=== PATIENT | female | born 1940 | race Caucasian/White ===

== ENCOUNTER 2020-04-18 18:03 | Inpatient (IN) | payer MEDICARE, BC ==
[~2020-04-18] VITALS: Ht 152.4 cm; Wt 50.8 kg
--- NOTE | ~2020-04-18 | HEMODYNAMI ---
PATIENT:MARC TRIPP MEDICAL RECORD: [id number] : 42 [id number] ADMISSION DATE: 04/19/20 Generatedon:04/21/202010:57 Patient name: MARC TRIPP Patient #: [id number] : 1940 Date of study: 04/21/2020 Page: Of Hemodynamic Procedure Report Patient Data Patient Demographics Procedure consent was obtained First Name: MARC Gender: Female Last Name: JOSEE : 1940 [facility] Initial: LORELEI Age: 80 year(s) Patient #: [id number] Race: SSN: [id number] Additional ID: [id number] Contact details Address: [address] [place] [address] State: [place] City: [place] Zip code: [address] Past Medical History Allergies: No known allergies Admission Admission Data Admission Date: 04/19/2020 Admission Time: 23:11 Arrival Date: 04/19/2020 Arrival Time: 23:11 Admit Source: Emergency Insurance Payor: Medicare department [facility] #: [id number] [facility] Height (in.): 59.84 BSA: 1.45 (m2) Height (cm.): 152 BMI: 21.64 (kg/m2) Weight (lbs.): 110.23 Weight (kg.): 50 Lab Results Lab Result Date: 04/21/2020 Lab Result Time: 0:00 Biochemistry Name Units Result Min Max BUN mg/dl 11 --(-*--)-- 7 18 Creatinine mg/dl 0.8 --(-*--)-- 0.6 1.3 eGFR ml/min 73.72819 *-(----)-- 90 120 NONAFRICAN CBC Name Units Result Min Max Hemoglobin g/dl 13.1 -*(----)-- 13.5 17.5 Procedure Procedure Types Cath Procedure Diagnostic Procedure LHC LHC w/Coronaries Sedation Charges Moderate Sedation up to 15 minutes PCI Procedure Coronary Stent Coronary Stent Initial Hemochron ACT Test Procedure Description Procedure Date Procedure Date: 04/21/2020 Procedure Start Time: 10:34 Procedure End Time: 10:51 Procedure Staff Name Function Mark Carmona MD Performing Physician Joelle Wu RT Monitor Dina Rush RT Scrub Marycarmen Marinelli RN Nurse Procedure Data Cath Procedure Fluoroscopy Diagnostic fluoroscopy Total fluoroscopy Time: 3.3 time: 3.3 min min Diagnostic fluoroscopy Total fluoroscopy dose: 381 dose: 381 mGy mGy Contrast Material Contrast Material Type Amount (ml) Isovue 370 73 Entry Location Entry Primary Successful Side Size Upsize Upsize Entry Closure Keller ccessful Closure Location (Fr) 1 (Fr) 2 (Fr) Remarks Device Remarks Radial Right 6 Fr Mechanical artery Short Compression Estimated blood loss: 10 ml Diagnostic catheters Device Type Used For End Catheter Placement DIAGNOSTIC [place] 110cm 5 Procedure Fr catheter ([id number]) Procedure Complications No complications Procedure Medications Medication Administration Route Dosage Oxygen etCO2 Nasal cannula 2 l/min Lidocaine 2% added to field 20 Heparin Flush Bag added to field 2 bags (1000units/500ml NS) 0.9% NaCl I.V. 100 ml/hr Versed I.V. 1 mg Fentanyl I.V. 25 mcg Vasotec 2.5 mg Heparin Bolus I.V. 4000 units Integrilin (Bolus I.V. 4.5 ml 2mg/ml) Radial Cocktail I.A. 1 syringe (Verapamil 2mg/Nitro 400mcg/Heparin 1500units) Plavix P.O. 600 mg Hemodynamics Rest BSA: 1.45 (m2) HGB: 13.1 (g/dl) O2 Consumption: Estimated: 122.68 (ml/min) O2 Co nsumption indexed: Estimated:84.61 (ml/min/m) Heart Rate: 55 (bpm) Pressure Samples Time Site Value (mmHg) Purpose Heart Use Rate(bpm) 10:36 LV 168/11,5 Snapshot 56 10:36 AO 141/78(105) Pullback 62 10:36 LV 144/8,10 Pullback 62 Gradients Valve Time Site 1 Site 2 Mean SEP/DFP Peak To Heart Use (mmHg) (sec/min) Peak Rate (mmHg) (bpm) Aortic 10:36 LV AO 3 62 144/8,10 141/78(105) Calculations Valve P-P Mean Valve Index Valve Source Name Gradient Area Flow (cm2) Aortic 3 3 Snapshots Pre Cath Intra NCS Post Cath Vital Signs Time Heart Resp SPO2 etCO2 NIBP (mmHg) Rhythm Pain Sedation Rate (ipm) (%) (mmHg) Status Level (bpm) 10:17:17 59 18 96 0 224/89(169) NSR 0 (11) 10(A) , No pain 10:21:56 57 15 96 28.6 207/85(169) NSR 0 (11) 10(A) , No pain 10:26:28 54 14 97 0.7 199/84(157) NSR 0 (11) 10(A) , No pain 10:30:59 54 13 97 3.7 215/86(166) NSR 0 (11) 10(A) , No pain 10:35:35 62 15 98 17.3 222/106(163) NSR 0 (11) 9(A) , No pain 10:40:05 61 12 96 35.4 177/78(123) NSR 0 (11) 9(A) , No pain 10:44:26 60 13 97 38.4 195/92(160) NSR 0 (11) 9(A) , No pain 10:48:52 60 14 98 1.5 194/87(149) NSR 0 (11) 10(A) , No pain Medications Time Medication Route Dose Verified Delivered Reason Not es Effectiveness by by 10:15:08 Oxygen etCO2 2 l/min Mark Conroy used for Nasal St Jasiel Marinelli RN procedure cannula 10:15:15 Lidocaine 2% added 20ml Mark Flores for local to vial [facility] anesthetic field MD SOUZA 10:15:22 Heparin Flush added 2 bags Mark Flores used for Bag to [facility] procedure (1000units/500ml field MD SOUZA NS) 10:17:18 0.9% NaCl I.V. 100 Mark Conroy Per physician ml/hr St Jasiel Marinelli RN, MD 10:34:48 Versed I.V. 1 mg Mark Conroy for sedation St Jasiel Marinelli RN, MD 10:34:56 Fentanyl I.V. 25 mcg Mark Conroy for sedation St Jasiel Marinelli RN, MD 10:35:09 Radial Cocktail I.A. 1 Mark Flores for (Verapamil syringe St Jasiel Carmona vasodilation 2mg/Nitro MD SOUZA 400mcg/Heparin 1500units) 10:39:06 Vasotec IV 2.5 mg Mark Pollock RN hypertension 10:42:17 Heparin Bolus I.V. 4000 Mark hallman pravin ified units St Jasiel Marinelli RN anticoagulation with dr MD kline 10:45:01 Integrilin I.V. 4.5 ml Mark hallman was ricky (Bolus 2mg/ml) St Jasiel Marinelli RN antiplatelet 5.5 ml therapy of vial 10:49:45 Plavix P.O. 600 mg Mark Pollock RN antiplatelet therapy Procedure Log Time Note 9:47:52 Informed consent obtained and on chart 9:48:50 Arrival Date: 04/19/2020 11:11:00 PM 9:49:11 Admit Source: Emergency department 9:49:13 Insurance Payor : Medicare 9:49:20 Patient Height : 59.84 inches 9:49:27 Patient Weight : 110.23 lbs 9:50:12 Lab Result : Creatinine 0.8 mg/dl 9:50:12 Lab Result : BUN 11 mg/dl 9:50:12 Lab Result : eGFR NONAFRICAN 73.93242 ml/min 9:50:12 Lab Result : Hemoglobin 13.1 g/dl 9:50:59 Procedure Status Urgent Heart Cath (IP). 9:51:01 Marycarmen Marinelli RN sent for patient. Start room use. 9:51:02 Time tracking: Regular hours (M-F 7:00 - 5:00) 9:51:05 Plan of Care:Hemodynamics will remain stable., Cardiac rhythm will remain stable., Comfort level will be maintained., Respiratory function will remain adequate., Patient/ family verbilizes understanding of procedure., Procedure tolerated without complication., Recovers from procedure without complications.. 9:59:36 H&P Date Dictated: 04/18/2020 Within 30 days and on chart.. 9:59:36 Pre-procedure instructions explained to patient. 9:59:36 Pre-op teaching completed and patient verbalized understanding. 9:59:38 Family unavailable. 9:59:40 Patient NPO since Midnight. 9:59:46 Patient allergic to No known allergies 9:59:53 Patient pain scale 0/10 ?. 9:59:56 Lab results completed and on chart. 9:59:59 Stress Test: no; N/A ? 10:00:00 Alarms reviewed by RAzalea N. 10:00:01 Sharps counted by scrub and verified by RAzaleaN. 10:07:48 Patient received from Med II to CCL 2 Alert and oriented. Tansferred to table in Supine position. 10:07:53 Warm blankets applied, and hema hugger turned on for patient comfort. 10:07:54 Correct patient and procedure confirmed by team. 10:07:54 ECG and BP/O2 sat monitors applied to patient. 10:07:59 Is the patient allergic to Iodine/contrast media? No. 10:08:00 Was the patient premedicated? N/A 10:08:02 Is patient on blood thinner?No 10:08:10 Patient diabetic? No. 10:08:12 If diabetic: On Metformin? N/A 10:08:14 Patient not . Patient is over age 55. 10:08:15 ----Pre-sedation anethsthesia assessment.---- 10:14:58 Vital chart was started 10:15:08 Oxygen 2 l/min etCO2 Nasal cannula was administered by Marycarmen Marinelli RN; used for procedure; Verbal order read back and verified. 10:15:15 Lidocaine 2% 20ml vial added to field was administered by Mark Carmona MD; for local anesthetic; Verbal order read back and verified. 10:15:22 Heparin Flush Bag (1000units/500ml NS) 2 bags added to field was administered by Mark Carmona MD; used for procedure; Verbal order read back and verified. 10:15:35 Dentures? Yes IN 10:15:40 ACC The patient was administered the following blood thiners within the last 24 hours: ACCLovenox 10:15:45 Previous problem with sedation/anesthesia? No ? 10:15:47 Snore? No 10:15:48 Sleep apnea? No 10:15:50 Deviated septum? No 10:15:51 Opens mouth fully? Yes 10:15:53 Sticks out tongue? Yes 10:15:55 Airway obstruction? No ? 10:15:59 Pre procedure: right dorsailis pedis pulse 1+ Palpable, but thready & weak; easily obliterated 10:16:01 Modified Vince's test Ulnar < 7 seconds 10:16:03 Patient pain scale 0/10 ?. 10:16:16 IV patent on arrival in left forearm with 0.9% NaCl at [facility]. 10:16:20 Right Radial & Right Groin area was prepped with chlora-prep and draped in sterile fashion 10:16:59 Use device set Radial Dx or PCI 10:17:00 ACIST Syringe (34186) opened to sterile field. 10:17:01 Bag Decanter (2002S) opened to sterile field. 10:17:02 ACIST Hand Control (35438) opened to sterile field. 10:17:02 ACIST Manifold (05052) opened to sterile field. 10:17:02 Tegaderm 4 x 4 (1626W) opened to sterile field. 10:17:06 Medline Cath Pack ([id number]) opened to sterile field. 10:17:07 MBrace Wrist Support ([id number]) opened to sterile field. 10:17:08 EMERALD Guide Wire (668-370) opened to sterile field. 10:17:09 SHEATH 6FR RAIN (3252888) opened to sterile field. 10:17:18 0.9% NaCl 100 ml/hr I.V. was administered by Marycarmen Marinelli RN; Per physician; Verbal order read back and verified. 10:24:26 Diagnostic Cath Status : Urgent 10:25:53 Baseline sample Acquired. 10:25:55 Full Disclosure recording started 10:25:58 Rhythm: sinus bradycardia 10:33:42 --------ALL STOP TIME OUT------ 10:33:42 Final Timeout: patient, procedure, and site verified with staff and physician. All members of the team are in agreement. 10:33:44 Right Radial & Right Groin site verified by team. 10:33:47 Fire Safety Assessment: A--An alcohol-based skin anteseptic being used preoperatively., C--Open oxygen or nitrous oxide is being used., D--An ESU, laser, or fiber-optic light is being used. 10:33:50 Physical assessment completed. ASA score P 2 - A patient with mild systemic disease as per Mark Carmona MD. 10:33:55 2) 60-89 Mildly reduced kidney function, and other findings (as for stage 1) point to kidney disease. 10:33:57 Maximum allowable contrast dose (3.7 X eGFR X 0.75)219 ml. 10:34:00 Sedation plan: IV Moderate Sedation Medication:Versed, Fentanyl 10:34:04 Procedure started. 10:34:09 Local anesthetic to right radial artery with Lidocaine 2% by Mark Carmona MD.INITIAL ACCESS ONLY 10:34:48 Versed 1 mg I.V. was administered by Marycarmen Marinelli RN; for sedation; Verbal order read back and verified. 10:34:48 A 6 Fr Short sheath was inserted into the Right Radial artery 10:34:56 Fentanyl 25 mcg I.V. was administered by Marycarmen Marinelli RN; for sedation; Verbal order read back and verified. 10:35:09 Radial Cocktail (Verapamil 2mg/Nitro 400mcg/Heparin 1500units) 1 syringe I.A. was administered by Mark Carmona MD; for vasodilation; Verbal order read back and verified. 10:35:34 A DIAGNOSTIC [place] 110cm 5 Fr catheter ([id number]) was advanced over the wire and used for Procedure. 10:36:01 LV gram done using BUCK 10:36:20 LV hemodynamics recorded. 10:36:22 Injector settings: Ml/sec: 5, Volume: 15, 10:36:42 EF : 20 % 10:36:49 LCA angiography performed. 10:36:54 Injector settings: Ml/sec: 3, Volume: 6, 10:38:06 RCA angiography performed. 10:38:09 Injector settings: Ml/sec: 3, Volume: 6, 10:39:06 Vasotec 2.5 mg IV was administered by Marycarmen Marinelli RN; for hypertension; Verbal order read back and verified. 10:39:48 Use device set [place] PCI 10:40:18 Catheter exchanged over wire. 10:40:40 GUIDE 6FR XBLAD 3.5 catheter ([id number]) opened to sterile field. 10:40:53 WHISPER 300cm guide wire ([id number]) opened to sterile field. 10:41:06 INFLATOR Merit BasixCompak (ZN4081) opened to sterile field. 10:41:12 Proceeding to intervention. 10:41:25 6 Fr XBLAD 3.5 guide catheter was inserted over the wire 10:41:56 WHISPER 300 wire advanced. 10:42:06 Pre PCI Site: [place] LAD has 80% stenosis. 10:42:17 Heparin Bolus 4000 units I.V. was administered by Marycarmen Marinelli RN; for anticoagulation; verified with dr kline Verbal order read back and verified. 10:43:03 Wire advanced across lesion. 10:45:01 Integrilin (Bolus 2mg/ml) 4.5 ml I.V. was administered by Marycarmen Marinelli RN; for antiplatelet therapy; wasted 5.5 ml of vial Verbal order read back and verified. 10:45:47 Place stent Inflation Number: 1 A INTEGRITY OTW 3.5 X 12 stent ([id number]) was prepped and advanced across the Prox LAD 80. The stent was deployed at 14 PAUL for 0:00 (min:sec) . 10:46:13 ZEPHYR REGULAR TR BAND (156816) opened to sterile field. 10:46:20 Stent catheter was removed intact over wire. 10:46:21 Wire removed. 10:46:22 Guide catheter removed. 10:46:32 Sheath removed intact; hemostasis achieved with Mechanical Compression to the Right Radial artery. 10:46:34 Procedure ended.(Physican Out) 10:47:09 Fluoroscopy time 03.30 minutes. 10:47:18 Fluoroscopy dose: 381 mGy 10:47:18 Flurop Dose total: 381 10:47:37 Dose Area Product 35386 mGy/cm. 10:47:41 Contrast amount:Isovue 370 73ml. 10:47:44 Maximum allowable dose exceeded? No. 10:47:45 Sharps counted by scrub and verified by R.N. 10:47:48 Prole band inflated with 13cc of air. 10:48:04 Post Procedure Pulses reassessed and unchanged 10:48:13 Post procedure: right dorsailis pedis pulse 2+ Normal; easily identifiable; not easily obliterated. 10:48:17 Post-procedure physical assessment completed. ASA score P 2 - A patient with mild systemic disease as per Mark Carmona MD. 10:48:20 Post procedure rhythm: unchanged. 10:48:23 Estimated blood loss: 10 ml 10:48:24 Post procedure instruction explained to patient.Patient verbalizes understanding. 10:48:25 Patient needs reinforcement of post procedure teaching. 10:48:52 Procedure type changed to Cath procedure, Diagnostic procedure, LHC, [facility] w/Coronaries, Sedation Charges, Moderate Sedation up to 15 minutes, PCI procedure, Coronary Stent, Coronary Stent Initial, Hemochron ACT Test 10:49:16 Procedure and supply charges have been captured, reviewed, submitted and are correct. 10:49:20 Procedure Complication : No complications 10:49:29 [facility] Findings: MVD- PCI performed (see procedure note) 10:49:39 Operative report dictated upon procedure completion. 10:49:40 See physician's report for complete and final results. 10:49:41 Report given to [facility]. 10:49:45 Plavix 600 mg P.O. was administered by Marycarmen Marinelli RN; for antiplatelet therapy; Verbal order read back and verified. 10:49:46 Patient transfered to [facility] with Bed. 10:51:28 Vital chart was stopped 10:51:30 Procedure ended. 10:51:30 Full Disclosure recording stopped 10:52:01 ACC-PCI Only Patient was given prescriptions, or instructed by Mark Carmona MD to start/continue the following medications upon discharge: Plavix 10:52:02 End room use (Document Last) 10:52:21 End room use (Document Last) 10:54:01 End room use (Document Last) 10:56:32 ACT drawn and resulted at out of range high seconds. (normal therapeutic range 180-240 seconds). Intervention Summary Intervention Notes Time ActionType Lesion and Equipment Action# Pressure Duration Attributes Used 10:45:47 Place stent Prox LAD INTEGRITY 1 14 00:00 OTW 3.5 X 12 stent ([id number]) Device Usage Item Name Manufacture Quantity Catalog Hospital Part Current Minima l Lot# / Number Charge Number Stock Stock Serial# Code ACIST Acist 1 35847 760834 370618 947876 20 Syringe Medical (79640) Systems Inc Bag Microtek 1 629290 02516 981799 5 Decanter Medical Inc. () ACIST Hand Acist 1 55884 882360 648074 971182 5 Control Medical (13070) Systems Inc ACIST Acist 1 25907 086984 961109 652022 5 Manifold Medical (68652) Systems Inc Tegaderm 4 3M 1 1626W 067676 972375 173850 5 x 4 (1626W) Medline Medline 1 [id number] 273284 81779 773066 5 Cath Pack ([id number]) MBrace Advanced 1 140-0250-00 595644 56452 668067 5 Wrist Vascular Support Dynamics ([id number]) EMERALD Cardinal 1 502-455 957219 040505 993997 5 Guide Wire Health (502455) SHEATH 6FR Cardinal 1 5957458 029943 1719393 497338 5 RAIN Health (0953308) DIAGNOSTIC Terumo 1 40-5013 773699 155345 530396 5 [place] 110cm 5 Fr catheter (132173) GUIDE 6FR Cardinal 1 18422146 867971 250252 936554 10 XBLAD 3.5 Health catheter (52390310) WHISPER Martin 1 [id number] 060775 733034 326961 5 300cm guide Vascular wire (2526257RT) INFLATOR Merit 1 YQ7918 296574 015732 954771 15 [facility] Medical BasixCompak (CA8797) INTEGRITY Medtronic 1 [id number] 929142 088648 360713 6 [id number] OTW 3.5 X 12 stent ([id number]) ZEPHYR Cardinal 1 788409 029222 5863331 870454 5 REGULAR TR Health BAND (318060) Signature Audit [place] Stage Time Signature Unsigned Intra-Procedure 04/21/2020 Joelle Wu 10:52:21 AM RT(R) Intra-Procedure 04/21/2020 Marycarmen Marinelli RN 10:54:01 AM Intra-Procedure 04/21/2020 Mark Herrera 10:57:00 AM Jasiel SOUZA Signatures Performing Physician : Signature : Mark Carmona MD Date : Time : Monitor : Joelle Wu Signature : RT Date : Time : Nurse : Buffie Marinelli RN Signature : Date : Time : [place] [address] [place] [address]
--- NOTE | ~2020-04-18 | EC ---
PATIENT:MARC TRIPP DATE OF SERVICE: 04/19/20 SEX: F MEDICAL RECORD: [id number] DATE OF : 42 LOCATION:D.M2 D.211 AGE OF PATIENT: 80 ADMISSION DATE: 04/19/20 REFERRING PHYSICIAN: INTERPRETING PHYSICIAN: ANGELES BURNS MD ECHOCARDIOGRAM REPORT ECHO CHARGES 4 ECHO COMPLETE Date: 04/19/20 CLINICAL DIAGNOSIS: LVH ECHOCARDIOGRAPHIC MEASUREMENTS (adult normal given) AC root (d.<3.7cm) 2.5 cm LV Septum d (<1.2 cm> 1.2 cm Valve Excursion 1.2 cm LV Septum (systole) 1.5 cm Left Atria (s.<4.0cm> 3.4 cm LVPW d(<1.2cm) 0.8 cm RV (d.<2.3cm) 1.9 cm LVPW (sytole) 0.9 cm LV diastole(<5.6CM) 5.6 cm MV E-F(>70mm/sec) cm LV systole 4.7 cm LVOT Diameter 1.7 cm MV exc.(>10mm) cm Est.ejection fraction (50-75%) % DOPPLER: LVIT cm/sec A 118 cm/sec E 68 cm/sec LA cm/sec RVSP 16.5 mmHg LVOT 96 cm/sec AOP1/2T m/s Asc. Ao 133 cm/sec RVOT 97 cm/sec RA cm/sec PA 87 cm/sec AV Gradient Peak 7.0 mmHg AV Mean 3.0 mmHg AV Area 1.2 cm MV Gradient Peak 9.0 mmHg MV Mean 2.9 mmHg MV Area cm COMMENTS: Store Mgr: Jason HALLMAN Physician'S Assistant: 4 Dr. Burns TAPE# PaCS Pericardial Effusion N DATE OF SERVICE: PROCEDURE: Transthoracic echocardiogram. FINDINGS: 1. The left ventricle shows moderate concentric left ventricular hypertrophy with inflow characteristics consistent with diastolic dysfunction. The patient's overall ejection fraction is 45% to 50%. There is inferior lateral hypokinesis. 2. Left atrium is normal size, shape, structure, and function. ECHOCARDIOGRAM REPORT [id number] MARC TRIPP 3. The aortic valve is normal. 4. The mitral valve is showing mitral annular calcification, but otherwise normal. 5. Tricuspid valve has normal tricuspid function and normal right ventricular systolic pressures. 6. Right ventricle is normal. 7. Right atrium is normal. 8. Pulmonic valve is normal. 9. There is no effusion. IMPRESSION: The patient has mild regional wall motion abnormalities in the inferolateral area, otherwise normal echocardiogram. TRANSINT:[id number] Voice Confirmation ID: [id number] DOCUMENT ID: [id number] ANGELES BURNS MD CC: [id number] DICTATION DATE: 04/20/20 1100 LIVESTOCK LABORER: 04/20/20 1532 ADM IN [place] [id number] [place] [address]
--- NOTE | 2020-04-18 18:20 | NUR ---
ASPIRIN [address] [facility] TODAY BEFORE TRANSFER
[2020-04-18 19:01] LABS: BASOPHILS 0.6 % (0-2); EOSINOPHILS 1.2 % (0-7); HEMATOCRIT 43.3 % (36.0-48.0); HEMOGLOBIN 13.9 g/dL (12-16); IMMATURE GRANULOCYTES 0.2 % (0-5); MCH 30.2 pg (26.0-34.0); MCHC 32.1 g/dL (31.0-37.0); MCV 93.9 fL (80.0-100.0); MEAN PLATELET VOLUME 10.9 fL (7.4-10.4); MONOCYTES 9.2 % (2-11); NEUTROPHILS 67.8 % (40-80); PLATELET COUNT 187 10x3/uL (130-400); RBC 4.61 10x6/uL (4.00-5.40); RDW 14.2 % (11.5-14.5); WBC 4.9 10x3/uL (4.8-10.8)
[2020-04-18 19:03] VITALS: BP 162/73
[2020-04-18 19:11] LABS: INR 1.12 (0.85-1.17); PROTIME 14.3 SECONDS (11.6-15.0)
[2020-04-18 19:12] LABS: APTT 49.5 SECONDS (22.8-39.4); CALC OSMOLALITY 276 mosm/kg (275-300); CALCIUM 8.6 mg/dL (8.5-10.1); CARBON DIOXIDE 27.4 mmol/L (21.0-32.0); CHLORIDE - SERUM 106 mmol/L (98-107); CREATININE - SERUM 0.7 mg/dL (0.6-1.3); GLUCOSE 91 mg/dL (74-106); POTASSIUM - SERUM 3.3 mmol/L (3.5-5.1); SODIUM 139 mmol/L (136-145); UREA NITROGEN 9 mg/dL (7-18); eGFR NON AFRICAN AMERICAN 85 mL/min (90-120)
--- NOTE | 2020-04-18 19:14 | NUR ---
REPORT GIVEN TO LOC ESCAMILLA
--- NOTE | 2020-04-18 19:15 | NUR ---
PT IN BED RESTING WITH EYES OPEN
[2020-04-18 19:34] LABS: ALBUMIN 3.5 g/dL (3.4-5.0); ALKALINE PHOSPHATASE 55 U/L (30-120); ALT (SGPT) 17 U/L (10-68); BILIRUBIN - TOTAL 0.64 mg/dL (0.2-1.3); CKMB 1.1 U/L (0.0-3.6); CREATINE KINASE 66 UL (21-215); MAGNESIUM - SERUM 1.9 mg/dL (1.8-2.4); PROTEIN - SERUM 6.5 g/dL (6.4-8.2)
[2020-04-18 19:35] LABS: TROPONIN-I 0.895 ng/mL (0.000-0.060)
[2020-04-18 20:00] VITALS: BP 147/73
[2020-04-18 21:00] VITALS: BP 133/72
[2020-04-18 22:05] VITALS: BP 168/74
[2020-04-18 23:22] LABS: CKMB 1.1 U/L (0.0-3.6); CREATINE KINASE 64 UL (21-215)
[2020-04-18 23:30] LABS: TROPONIN-I 0.895 ng/mL (0.000-0.060)
[2020-04-18] MEDS ORDERED: NAMENDA10 MG PO (23:56)
[2020-04-18] MEDS ORDERED: DONEPEZIL HCL5 MG PO (23:56)
[2020-04-18] MEDS ORDERED: REMERON15 MG PO (23:56)
[2020-04-18] MEDS ORDERED: LISINOPRIL20 MG PO (23:57)
[2020-04-18] MEDS ORDERED: OMNICEF300 MG PO (23:58)
--- NOTE | 2020-04-19 00:03 | NUR ---
RECIEVED REPORT FROM ER. ALERT AND ORIENTED X2. ARRIVED TO FLOOR IN W/C. REQUIRES ASSIST TO TRANSFER. DTR ANSWERS MOST QUESTIONS. DENEIS ANY NEEDS AT THIS TIME. ASSESSMENT COMPLETED.
[2020-04-19 00:09] VITALS: BP 146/68; BMI 22.0
[2020-04-19 04:00] VITALS: BP 134/71
[2020-04-19 05:50] LABS: BASOPHILS 0.9 % (0-2); EOSINOPHILS 2.4 % (0-7); HEMATOCRIT 42.3 % (36.0-48.0); HEMOGLOBIN 13.5 g/dL (12-16); LYMPHOCYTES 16.9 % (15-50); MCH 30.2 pg (26.0-34.0); MCHC 31.9 g/dL (31.0-37.0); MCV 94.6 fL (80.0-100.0); MEAN PLATELET VOLUME 11.2 fL (7.4-10.4); MONOCYTES 13.4 % (2-11); NEUTROPHILS 66.4 % (40-80); PLATELET COUNT 189 10x3/uL (130-400); RBC 4.47 10x6/uL (4.00-5.40); WBC 4.3 10x3/uL (4.8-10.8)
[2020-04-19 06:33] LABS: CALC OSMOLALITY 276 mosm/kg (275-300); CALCIUM 8.8 mg/dL (8.5-10.1); CARBON DIOXIDE 25.3 mmol/L (21.0-32.0); CHLORIDE - SERUM 106 mmol/L (98-107); CHOL - HDL RATIO 4.5 ratio (2.3-4.1); CHOLESTEROL, TOTAL 220 mg/dL (0-200); CKMB 0.9 U/L (0.0-3.6); CREATINE KINASE 53 UL (21-215); CREATININE - SERUM 0.7 mg/dL (0.6-1.3); GLUCOSE 80 mg/dL (74-106); HDL CHOLESTEROL 49 mg/dL (32-96); LDL CHOLESTEROL 144 mg/dL (0-100); LDL-HDL RATIO 2.9 ratio (1.5-3.5); MAGNESIUM - SERUM 2.1 mg/dL (1.8-2.4); PHOSPHOROUS 3.5 mg/dL (2.5-4.9); POTASSIUM - SERUM 3.4 mmol/L (3.5-5.1); SODIUM 140 mmol/L (136-145); TRIGLYCERIDE 136 mg/dL (30-200); UREA NITROGEN 11 mg/dL (7-18); eGFR NON AFRICAN AMERICAN 85 mL/min (90-120)
[2020-04-19 06:35] LABS: TROPONIN-I 0.698 ng/mL (0.000-0.060)
[2020-04-19 08:00] VITALS: BP 171/73
[2020-04-19 10:12] VITALS: Ht 152.4 cm; Wt 50.8 kg
[2020-04-19 11:31] LABS: CKMB 0.9 U/L (0.0-3.6); CREATINE KINASE 56 UL (21-215)
[2020-04-19 11:35] LABS: TROPONIN-I 0.646 ng/mL (0.000-0.060)
[2020-04-19 12:00] VITALS: BP 175/73
[2020-04-19 12:13] LABS: ERYTHROCYTE SEDIMENTATION RATE 4 mm/hr (0-30)
[2020-04-19 16:00] VITALS: BP 144/80
[2020-04-19 20:00] VITALS: BP 193/76
--- NOTE | 2020-04-19 21:55 | NUR ---
PT LYING ON RIGHT SIDE RESTING. FAMILY AT BEDSIDE. NO S/S OF DISTRESS NOTED. PT DENIES ANY NEEDS AT THIS TIME. PM MEDICATIONS ADMININSTERED. WILL RECHECK BP AND ADMININSTER PRN MEDICATIONS IF NEEDED. WILL CTM.
--- NOTE | 2020-04-19 23:36 | NUR ---
DTR C/O OF PT GRTTING UP AND DOWN AND BEING COFUSED. ASKED IF SHE HAD ANYTHING TO CALM HER DOWN. WHEN THIS NURSE ENTERED ROOM SHE HAD HER EYES CLOSED. NO S/S OF AGITATION AND DID NOT OPEN HER EYES. EXPLAINED THAT SOMETIME THEY CAN BECOME CONFUSED WHEN IN A DIFFERENT PLACE. DTR VOICED UNDERSTANDING. NO THER ISSUES OF CONCERN VOICED.
[2020-04-20] VITALS: BP 189/68
[2020-04-20 04:00] VITALS: BP 165/95
[2020-04-20 05:43] LABS: EOSINOPHILS 2.2 % (0-7); HEMATOCRIT 41.2 % (36.0-48.0); HEMOGLOBIN 13.3 g/dL (12-16); IMMATURE GRANULOCYTES 0.2 % (0-5); LYMPHOCYTES 18.8 % (15-50); MCH 30.2 pg (26.0-34.0); MCHC 32.3 g/dL (31.0-37.0); MCV 93.4 fL (80.0-100.0); MEAN PLATELET VOLUME 11.2 fL (7.4-10.4); MONOCYTES 13.9 % (2-11); NEUTROPHILS 63.9 % (40-80); PLATELET COUNT 172 10x3/uL (130-400); RBC 4.41 10x6/uL (4.00-5.40); RDW 13.9 % (11.5-14.5)
[2020-04-20 06:06] LABS: ANION GAP 10.5 mmol/L (8-16); CALCIUM 8.9 mg/dL (8.5-10.1); CREATININE - SERUM 0.8 mg/dL (0.6-1.3); PHOSPHOROUS 3.6 mg/dL (2.5-4.9); POTASSIUM - SERUM 3.5 mmol/L (3.5-5.1)
[2020-04-20 08:00] VITALS: BP 209/89
[2020-04-20 16:00] VITALS: BP 172/78
--- NOTE | 2020-04-20 18:41 | NUR ---
UP AMBULATING HALLWAY WITH DAUGHTER AT SIDE.
[2020-04-20 20:00] VITALS: BP 195/88
--- NOTE | 2020-04-20 22:40 | NUR ---
RECIEVED SITTING UP ON SIDE OF BED. WAS AMBULATING WITH DTR AROUND NURSES STATION EARLIER. ALERT AND ORIETNED X4 WITH PERIODS OF CONFUSION. TELEMETRY IN PLAE. DENIES ANY PAIN OR NEEDS.
[2020-04-21] VITALS: BP 180/68
[2020-04-21 04:00] VITALS: BP 191/82
[2020-04-21 06:23] LABS: BASOPHILS 0.7 % (0-2); EOSINOPHILS 2.2 % (0-7); HEMOGLOBIN 13.1 g/dL (12-16); IMMATURE GRANULOCYTES 0.2 % (0-5); LYMPHOCYTES 19.2 % (15-50); MCV 93.8 fL (80.0-100.0); MONOCYTES 13.7 % (2-11); PLATELET COUNT 178 10x3/uL (130-400); RBC 4.37 10x6/uL (4.00-5.40); RDW 13.8 % (11.5-14.5)
[2020-04-21 07:21] LABS: ANION GAP 9.4 mmol/L (8-16); CALCIUM 8.3 mg/dL (8.5-10.1); CARBON DIOXIDE 26.8 mmol/L (21.0-32.0); CREATININE - SERUM 0.8 mg/dL (0.6-1.3); MAGNESIUM - SERUM 1.9 mg/dL (1.8-2.4); PHOSPHOROUS 3.2 mg/dL (2.5-4.9); POTASSIUM - SERUM 3.2 mmol/L (3.5-5.1)
[2020-04-21 09:00] VITALS: BP 199/71
--- NOTE | 2020-04-21 09:35 | NUR ---
FAN ENGINE ENGINEER CALLED AND ASK THAT PATIENT BE GIVEN PREOP MEDICATION. DONE BY ADILENE RENE RN
--- NOTE | 2020-04-21 10:05 | NUR ---
TO LINING PRESSER VIA BED. DAUGHTER WAITING IN ROOM.
--- NOTE | 2020-04-21 11:17 | NUR ---
RETURNED FROM INSPECTOR AUTOMATIC TYPEWRITER, DROUSY WITH RIGHT RADIAL BAND FROM STENT PLACEMENT. FREQUENT VITALS IN PROCESS.
[2020-04-21 12:17] VITALS: BP 150/98
--- NOTE | 2020-04-21 14:00 | NUR ---
PATIENT HAD A 15 RUN V-TACH, VITAL SIGNS 210/90,63, 20, 98%. NO CHEST PAIN, NO BLEEDING NOTED AT RIGHT RADIAL BAND. HINA WITH CARDIOLOGY ON THE FLOOR, LOOKED AND ANALIZED STRIP. NO NEW ORDERS
--- NOTE | 2020-04-21 16:30 | NUR ---
2 CCS LET OUT OF RIGHT RADIAL BAND, NO BLEEDING NOTED. DAUGHTER INSTRUCTED TO CALL NURSE TO ROOM JEISON IF ANY SIGNS OF BLEEDING.
[2020-04-21 16:45] VITALS: BP 134/74
--- NOTE | 2020-04-21 16:45 | NUR ---
2 CCS LET OUT OF RIGHT RADIAL BAND, NO BLEEDING NOTED. PATIENT UP IN BED FOR SUPPER.
--- NOTE | 2020-04-21 17:34 | NUR ---
2 CCS LET OUT OF RIGHT RADIAL BAND WITH NO BLEEDING NOTED.
[2020-04-21 20:00] VITALS: BP 140/65
[2020-04-22] VITALS: BP 140/56; BP 150/72
[2020-04-22 04:00] VITALS: BP 161/64
[2020-04-22 05:49] LABS: BASOPHILS 0.4 % (0-2); EOSINOPHILS 2.4 % (0-7); HEMATOCRIT 40.1 % (36.0-48.0); IMMATURE GRANULOCYTES 0.2 % (0-5); LYMPHOCYTES 13.2 % (15-50); MCH 30.1 pg (26.0-34.0); MCHC 32.4 g/dL (31.0-37.0); MCV 92.8 fL (80.0-100.0); MEAN PLATELET VOLUME 10.9 fL (7.4-10.4); NEUTROPHILS 72.8 % (40-80); PLATELET COUNT 173 10x3/uL (130-400); RBC 4.32 10x6/uL (4.00-5.40); RDW 13.5 % (11.5-14.5)
[2020-04-22 06:09] LABS: ANION GAP 9.3 mmol/L (8-16); CARBON DIOXIDE 29.2 mmol/L (21.0-32.0); CREATININE - SERUM 0.8 mg/dL (0.6-1.3); PHOSPHOROUS 3.9 mg/dL (2.5-4.9); POTASSIUM - SERUM 3.5 mmol/L (3.5-5.1)
[2020-04-22 06:26] LABS: WBC 5.4 10x3/uL (4.8-10.8)
[2020-04-22 08:00] VITALS: BP 109/55
[2020-04-22 09:36] VITALS: BP 109/55
[2020-04-22] MEDS ORDERED: BAYER CHEWABLE81 MG PO (11:24)
--- NOTE | 2020-04-22 11:26 | NUR ---
PAGE INTO CARDIO FOR PLAVIX. AWAITING CALL BACK.
[2020-04-22] MEDS ORDERED: PLAVIX75 MG PO (11:35)
--- NOTE | 2020-04-22 11:49 | MORECARE ---
CASE MANAGEMENT DISCHARGE SUMMARY PATIENT: MARC TRIPP UNIT: [id number] ADM DATE: 04/19/20 AGE: 80 : 41 SEX: F ROOM/BED: D.[facility] AUTHOR: PONCHO FONSECA PHYSICIAN: REFERRING PHYSICIAN: DIVINE BARDALES MD DATE OF SERVICE: 04/22/20 Discharge Plan Patient Name: MARC TRIPP [facility] [facility] 1940 Planned Disposition: Anticipated Discharge Date: Discharge Date: Expected LOS: Initial Reviewer: [email or web address] Initial Review Date: 04/22/2020 Generated: 04/22/20 12:49 pm DCPIA - Discharge Planning Initial Assessment Updated by [email or web address]: Angela Marin on 04/22/20 11:47 am * Is the patient Alert and Oriented? Yes * How many steps to enter\exit or inside your home? 0/0 * PCP Dr. Murillo in [place] * Pharm[facility] in [place] * Preadmission Environment Home Alone * ADLs Partial Dependent * Partial ADLs (Assistance needed) Ambulation Medication Management * Equipment Walker * List name and contact numbers for known caregivers / representatives who currently or will assist patient after discharge: Rebecca Kacie - [phone] * Verbal permission to speak to the caregivers and representatives has been obtained from the patient. Yes * Community resources currently utilized Home Health * Please name any agencies selected above. [facility] in [place] * Additional services required to return to the preadmission environment? No * Can the patient safely return to the preadmission environment? Yes * Has this patient been hospitalized within the prior 30 days at any hospital? No Patient Name: MARC TRIPP Page 48261 at 1149 All edits/amendments must be made on the electronic document DICTATION DATE: 04/22/20 1149 BIAS MACHINE OPERATOR HELPER: ISABEL 04/22/20 1149 RPT#: [id number] DC DATE: STATUS: ADM IN [facility] [address] [place] [address] END OF REPORT
--- NOTE | 2020-04-22 11:56 | MORECARE ---
CASE MANAGEMENT DISCHARGE SUMMARY PATIENT: MARC TRIPP UNIT: [id number] ADM DATE: 04/19/20 AGE: 80 : 42 SEX: F ROOM/BED: D.8615 AUTHOR: RAYMUNDODOC PHYSICIAN: REFERRING PHYSICIAN: DIVINE BARDALES MD DATE OF SERVICE: 04/22/20 Discharge Plan Patient Name: MARC TRIPP Facility: [facility]:[place] : 1940 Planned Disposition: Anticipated Discharge Date: Discharge Date: Expected LOS: Initial Reviewer: [email or web address] Initial Review Date: 04/22/2020 Generated: 04/22/20 12:56 pm Comments DCP- Discharge Planning Updated by [email or web address]: Angela Marin on 04/22/20 10:[address] Patient Name: MARC TRIPP Admission Status: ER Accout number: [id number] Admission Date: 04-19-2020 : 1940 Admission Diagnosis: Attending: DIVINE LEVY Current LOS: 3 Anticipated DC Date: Planned Disposition: Primary Insurance: MEDICARE A & B Discharge Planning Comments: CM met with patient to complete initial dc planning assessment. CM educated patient on the CM role and verbal consent given by patient to complete assessment. Patient lives at home alone. At discharge patient plans to return to her sister's house ( states she lives right next to her) and feels this is a safe discharge. CM discussed availability of home health, rehab services, and medical equipment. Patient states she has home health with [facility] in [place] and would like that resumed. Daughter is in room and states she may need more help from home health at first. I called [facility] in [place] and spoke with Torrie, she will review paperwork and notify Dr. Murillo if additional help is needed. CINTHYA and clinical faxed. CM will continue to follow and will assist as needed with dc plans/needs. Career Developer: Angela Marin DCPIA - Discharge Planning Initial Assessment Updated by [email or web address]: Angela Marin on 04/22/20 11:47 am * Is the patient Alert and Oriented? Yes * How many steps to enter\exit or inside your home? 0/0 * PCP Dr. Murillo in [place] * Pharmacy [facility] in [place] * Preadmission Environment Home Alone * ADLs Partial Dependent * Partial ADLs (Assistance needed) Ambulation Medication Management * Equipment Walker * List name and contact numbers for known caregivers / representatives who currently or will assist patient after discharge: Rebecca Hester - [phone] * Verbal permission to speak to the caregivers and representatives has been obtained from the patient. Yes * Community resources currently utilized Home Health * Please name any agencies selected above. [facility] in [place] * Additional services required to return to the preadmission environment? No * Can the patient safely return to the preadmission environment? Yes * Has this patient been hospitalized within the prior 30 days at any hospital? No External [facility]iders [facility] Next Contact Date: Service Request Date: Service Type: Resolution: Reviewer: Comments: Last DP export: 04/22/20 10:49 a Patient Name: MARC TRIPP Page [phone] at 1156 All edits/amendments must be made on the electronic document DICTATION DATE: 04/22/20 1156 RECRUITING SPECIALIST: ISABEL 04/22/20 1156 RPT#: [id number] DC DATE: STATUS: ADM IN [facility] [address] [place] [address] END OF REPORT
--- NOTE | 2020-04-22 13:10 | NUR ---
SALINE LOCK REMOVED IN ANTICIPATION OF DISCHARGE HOME.
--- NOTE | 2020-04-22 14:13 | NUR ---
DISCHARGE INSTRUCTIONS DISCUSSED WITH PATIENT AND DAUGHTER. TO CAR VIA WHEELCHAIR IN STABLE CONDITION.
--- NOTE | 2020-04-23 08:18 | OP ---
PATIENT NAME: MARC TRIPP MEDICAL RECORD: [id number] :42 LOCATION:D.M2 D.2114 ADMISSION DATE:04/19/20 SURGEON: DANNY MARSH MD DATE OF OPERATION: 04/21/2020 PROCEDURE: Left heart catheterization, selective coronary angiography, right radial approach. CATHETERS: Radial sheath, [place] catheter. The procedure was well tolerated. The patient returned to the robins, sheath removed. TR band was placed. FINDINGS: Left ventriculography shows global hypokinesis with reduced EF, estimated EF 25%. CORONARY ANATOMY: LEFT MAIN: Left main is free of disease. LAD: Has about 80% stenosis in its very proximal portion. This does fill the right coronary to septal arcade. CIRCUMFLEX: Small circumflex is free of disease. RIGHT CORONARY ARTERY: Totally occluded and fills well via left to right collaterals from the LAD itself. IMPRESSION: Critical disease LAD, obviously infarct related artery. PLAN: Intervention momentarily. DESCRIPTION OF PROCEDURE: Using indwelling sheath, XB LAD guide catheter provided excellent guide catheter support followed by 300 cm whisper wire. Stent deployed was a 3.5 x 12 mm Integrity drug-eluting stent up to 14 atmospheres. Final angiography shows excellent resolution of 80% stenosis, no significant residual. SHEREEN flow was 3 throughout the procedure. Plavix loaded in the lab. We will also start Aldactone for LV dysfunction, consider addition of Entresto at a later date. TRANSINT:[id number] Voice Confirmation ID: [id number] DOCUMENT ID: [id number] DANNY MARSH MD at 0818 CC: [id number] DICTATION DATE: 04/21/20 1051 AUTO LEASING MANAGER: 04/21/20 2149 DIS IN 04/22/20 [facility] [address] [place] [id number]
--- NOTE | 2020-04-24 07:08 | MORECARE ---
CASE MANAGEMENT DISCHARGE SUMMARY PATIENT: MARC TRIPP UNIT: [id number] ADM DATE: 04/19/20 AGE: 80 : 41 SEX: F ROOM/BED: D.7727 AUTHOR: RAYMUNDO,DOC PHYSICIAN: REFERRING PHYSICIAN: DIVINE BARDALES MD DATE OF SERVICE: 04/24/20 Discharge Plan Patient Name: MARC TRIPP Facility: [facility]:[place] : 1940 Planned Disposition: Home with Home Health Anticipated Discharge Date: Discharge Date: 04/22/2020 Expected LOS: 0 Initial Reviewer: [email or web address] Initial Review Date: 04/22/2020 Generated: 04/24/20 8:08 am Comments DCP- Discharge Planning Updated by [email or web address]: Angela Marin on 04/22/20 10:[address] Patient Name: MARC TRIPP Admission Status: ER Accout number: [id number] Admission Date: 04-19-2020 : 1940 Admission Diagnosis: Attending: DIVINE LEVY Current LOS: 3 Anticipated DC Date: Planned Disposition: Primary Insurance: MEDICARE A & B Discharge Planning Comments: CM met with patient to complete initial dc planning assessment. CM educated patient on the CM role and verbal consent given by patient to complete assessment. Patient lives at home alone. At discharge patient plans to return to her sister's house ( states she lives right next to her) and feels this is a safe discharge. CM discussed availability of home health, rehab services, and medical equipment. Patient states she has home health with [facility] in [place] and would like that resumed. Daughter is in room and states she may need more help from home health at first. I called [facility] in [place] and spoke with Torrie, she will review paperwork and notify Dr. Murillo if additional help is needed. CINTHYA and clinical faxed. CM will continue to follow and will assist as needed with dc plans/needs. Finishing And Shipping Supervisor: Angela Marin DCPIA - Discharge Planning Initial Assessment Updated by [email or web address]: Angela Marin on 04/22/20 11:47 am * Is the patient Alert and Oriented? Yes * How many steps to enter\exit or inside your home? 0/0 * PCP Dr. Murillo in [place] * Pharmacy [facility] in [place] * Preadmission Environment Home Alone * ADLs Partial Dependent * Partial ADLs (Assistance needed) Ambulation Medication Management * Equipment Walker * List name and contact numbers for known caregivers / representatives who currently or will assist patient after discharge: Reese Hester - [phone] * Verbal permission to speak to the caregivers and representatives has been obtained from the patient. Yes * Community resources currently utilized Home Health * Please name any agencies selected above. [facility] in [place] * Additional services required to return to the preadmission environment? No * Can the patient safely return to the preadmission environment? Yes * Has this patient been hospitalized within the prior 30 days at any hospital? No Coverage Notice Reviewer: [email or web address] Juanjo Marin Notice Issued Date-Time: 04/22/2020 12:01 Notice Type: IM Discharge Notice Notice Delivered To: Family Member Relationship to Patient: Daughter Prom Burn Off Operator Name: REESE HESTER Delivery Method: HAND - Hand Delivered Ronda Days: Prior Verbal Notification: Recipient Understood Notice: Yes Recipient Signature: Yes Med Rec Note Co-signed by Attending: Coverage Notice Comment: IMM explained, signed, given, copy placed in MR Reviewer: [email or web address] Juanjo Marin Notice Issued Date-Time: 04/22/2020 12:01 Notice Type: Patient Choice Letter Notice Delivered To: Family Member Relationship to Patient: Daughter Prom Burn Off Operator Name: Delivery Method: HAND - Hand Delivered Ronda Days: Prior Verbal Notification: Recipient Understood Notice: Yes Recipient Signature: Yes Med Rec Note Co-signed by Attending: Coverage Notice Comment: [facility] for [facility] in [place] Last DP export: 04/22/20 10:56 a Patient Name: MARC TRIPP Page [id number] at 0708 All edits/amendments must be made on the electronic document DICTATION DATE: 04/24/20707 MOLDER FLOOR: ISABEL 04/24/20707 RPT#: [id number] DC DATE:04/22/20 STATUS: DIS IN [facility] [address] [place] [address] END OF REPORT
== END 2020-04-22 14:14 | disposition home health service (06) | DRG 249 ==
LOC: D.ER 18:03 → D.M2 18:41 → OBSVTIME 18:41 → D.M2 04-19 23:11
PROVIDERS: Family Medicine; Internal Medicine Interventional Cardiology; ADMIT Family Medicine Adult Medicine; ATTEND Family Medicine Adult Medicine
PROC: B2111ZZ Fluoroscopy of Multiple Coronary Arteries using Low Osmolar Contrast (ICD-10-PCS; 2020-04-21)
PROC: B2151ZZ Fluoroscopy of Left Heart using Low Osmolar Contrast (ICD-10-PCS; 2020-04-21)
PROC: 02703DZ Dilation of Coronary Artery, One Artery with Intraluminal Device, Percutaneous Approach (ICD-10-PCS; principal; 2020-04-21 09:51)
PROC: 4A023N7 Measurement of Cardiac Sampling and Pressure, Left Heart, Percutaneous Approach (ICD-10-PCS; 2020-04-21 09:51)
DX: I21.9 Acute myocardial infarction, unspecified (principal); I16.0 Hypertensive urgency; E16.2 Hypoglycemia, unspecified; F32.9 Major depressive disorder, single episode, unspecified; I25.10 Atherosclerotic heart disease of native coronary artery without angina pectoris; R55 Syncope and collapse; R51 Headache; Z85.820 Personal history of malignant melanoma of skin